=== PATIENT | female | born 1980 | race Caucasian/White ===

== ENCOUNTER 2016-08-22 21:48 | Emergency (ER) | payer MEDICAID ==
[~2016-08-22] VITALS: Ht 167.6 cm; Wt 97.0 kg
[~2016-08-22 21:48] MED LIST: ACET500C5 PO; IBUP-1542 PO; PREN1TAB49
[2016-08-22 21:57] VITALS: Ht 167.6 cm; Wt 97.0 kg
--- NOTE | 2016-08-22 22:18 | ERD ---
ER Documentation Chief Complaint Date/Time DATE: 08/22/16 Chief Complaint Right great toe injury HPI The patient is a 36-year-old female who presents to the Emergency Department with complaint of crush injury to the right great toe, with laceration noted. The patient reports that at home she has a TV sitting on a coffee table. She was attempting to move the coffee table, when the TV fell off, and landed directly onto the patient's right great toe, causing a crush injury and a laceration to the medial aspect of the toe. She states that shortly after the injury she was experiencing some bleeding, but the bleeding has since resolved. The patient reports as 6/10 throbbing pain localized to the distal right toe. Otherwise, denies any numbness, paresthesias or weakness of the distal extremity. Denies any restricted range of motion. Denies any protruding bone. She has not yet taken any medication for pain relief. Tetanus status is not up- to-date. No other complaints at this time. ROS All systems reviewed and are negative except as per history of present illness. Medications Home Meds Active Scripts Ibuprofen* (Motrin*) 600 Mg Tab, 600 MG PO Q6, #30 TAB Prov:BELA MARTINEZ PA-C 08/23/16 Acetaminophen* (Tylophen*) 500 Mg Capsule, 1 CAP PO Q6H Y for PAIN AND OR ELEVATED TEMP, #30 CAP Prov:DAREN FONTENOT PA-C 10/23/15 Ibuprofen* (Motrin*) 600 Mg Tab, 600 MG PO Q6, #30 TAB Prov:DAREN FONTENOT PA-C 10/23/15 Reported Medications Vits W-Ca,Fe,Fa(<1MG) () 1 Tab Tablet 07/25/10 Allergies Allergies: Coded Allergies: No Known Allergies (Verified Allergy, Mild, 10/23/15) PMhx/Soc Medical and Surgical Hx: pt denies Medical Hx, pt denies Surgical Hx Hx Alcohol Use: No Hx Substance Use: No Hx Tobacco Use: No Smoking Status: Never smoker Physical Exam Vitals Vital Signs Date Time Temp Pulse Resp B/P Pulse Ox O2 Delivery O2 Flow Rate FiO2 08/22/16 21:57 97.8 88 20 138/71 98 Physical Exam Const: Well-developed, well-nourished, in no acute distress. Head: Atraumatic. Normocephalic. Eyes: Normal Conjunctiva ENT: Normal External Ears, Nose and Mouth. Neck: Supple. Full range of motion. Resp: Clear to auscultation bilaterally Cardio: Regular rate and rhythm Abd: Soft, non tender, non distended. Skin: 1.5 cm linear laceration to the distal right great toe, medial aspect. No active bleeding. No drainage. No protruding bone. No foreign bodies noted. Back: No midline or flank tenderness Ext: No clubbing, cyanosis, or edema. Mild tenderness to palpation to the distal aspect of the right great toe. No focal swelling or erythema. No drainage. No bleeding. Laceration noted. Motor and sensation grossly intact. DP and PT pulses 2+. Capillary refill is less than 2 seconds. No subungual hematoma noted. Neur: Awake and alert Psych: Cooperative. Appropriate. Results 24 hrs Current Medications Medications (Trade) Dose Ordered Sig/Mely Route PRN Reason Start Time Stop Time Status Last Admin Dose Admin Bacitracin (Bacitracin Oint (Ud)) 1 applic ONCE ONCE TOP 08/22/16 22:30 08/22/16 22:31 DC 08/22/16 22:55 Lidocaine (Xylocaine 1% (Mdv) 20 ml) 20 ml ONCE ONCE SC 08/22/16 22:30 08/22/16 22:31 DC Diphtheria/ Tetanus/Acell Pertussis (Adacel) 0.5 ml ONCE ONCE IM* 08/22/16 22:30 08/22/16 22:31 DC 08/22/16 22:55 Ibuprofen (Motrin) 600 mg ONCE ONCE PO 08/22/16 22:30 08/22/16 22:31 DC 08/22/16 22:52 Procedures/MDM DIAGNOSTIC TESTS AND INTERPRETATION: PROCEDURE: XR Right Foot. CLINICAL INDICATION: Trauma. Pain.. TECHNIQUE: AP, lateral and oblique views of the right foot was obtained. The images were reviewed on a PACS workstation. COMPARISON: 10/23/2015 FINDINGS:There are no fractures. Joint relationships are maintained. Bone mineralization is within normal limits. There is small plantar calcaneal bone spur. Soft tissues are unremarkable. IMPRESSION:No acute abnormality. Small plantar calcaneal bone spur. .Chema Muñoz MD, MD Date Time Electronically viewed and signed by .Chema Muñoz MD, MD on 08/22/2016 23:59 PROCEDURAL NOTE: Laceration repair. INDICATIONS: 1.5 cm linear laceration to medial aspect of the distal right great toe. CONSENT: Consent was obtained from the patient prior to the procedure. Indications, risks and benefits were explained at length. PROCEDURAL SUMMARY: The patient was positioned appropriately. The site was anesthetized with 1 mL of 1% lidocaine without epinephrine. Normal saline and Betadine were used for wound irrigation. The wound was then explored, and no foreign body visualized, no tendon injury. The area was prepared and draped in the usual sterile manner with the wound exposed. Three 5-0 simple interrupted Prolene sutures are placed with good wound closure and good wound approximation. Bleeding was minimal. The patient tolerated the procedure well without complications. The wound was dressed with bacitracin and sterile gauze. Standard post procedure care was explained and return precautions were given. On re-evaluation, the patient was resting comfortable with no pain localized to the site of injury. She was neurovascularly and neurologically intact post-procedure. MEDICAL DECISION MAKING: This is a 36-year-old female presenting to the ED with right great toe pain and laceration after a TV fell onto it. On physical examination the patient had tenderness to palpation over the distal right great toe, with a 1.5 cm linear laceration noted. Vital signs were stable. She remained neurovascularly intact with no decrease in ROM. Differential diagnosis includes, but is not limited to, soft tissue injury, contusion, sprain , strain, dislocation, fracture, neurovascular injury, tendon injury, vascular injury, peripheral nerve injury. X-ray performed revealed no acute bony abnormalities. The patient's laceration was sutured. The patient had good wound closure and wound approximation, and tolerated the procedure well. The patient was neurovascularly intact prior to and status post laceration repair. Standard post-procedure care was explained to the patient at length. On reevaluation the patient reports no new complaints. Upon my review and interpretation of the patient's presentation, clinical data, and overall ER course I believe the patient's symptoms are most consistent with crush injury and laceration to the right great toe. At this time the patient is in stable condition and therefore can be discharged home with strict return precautions for signs of acute deterioration of condition. The patient is advised to follow up with her primary medical provider for wound check, reevaluation and further management within 2-3 days, suture removal in 7-10 days , or return to the ER sooner for any new or worsening symptoms. I shared my medical decision making, plan and the diagnostic results with the patient and patient at length and in great detail, and she verbally understands and agrees with the plan for further observation and care as an outpatient. At the time of discharge all questions were answered. Departure Diagnosis: Primary Impression: Laceration of right great toe Encounter type: initial encounter Damage to nail status: without damage Foreign body presence: without foreign body Qualified Code: S91.111A - Laceration of right great toe without foreign body present or damage to nail, initial encounter Additional Impression: Crushing injury of right great toe Encounter type: initial encounter Qualified Code: S97.111A - Crushing injury of right great toe, initial encounter Condition: Stable Patient Instructions: Crush Injury, Foot/Toe, Laceration, Foot Additional Instructions: Llame al doctor MAANA y nidhi flakita VERONIKA PARA DENTRO DE 1-2 HEBERT.Dgale a la secretaria que nosotros le instruimos hacer esta veronika.Avise o llame si swift condicin se empeora antes de la veronika. Regresa aqui si peor o no mejor. WOUND CHECK:CONSULTE A SWIFT MDICO EN 2 ramos para ana SWIFT HERIDA. SUTURE REMOVAL: CONSULTE A SWIFT MDICO PARA SACAR SWIFT PUNTOS. 7-10 ramos. BELA MARTINEZ PA-C Aug 22, 2016 22:18
[2016-08-22] MEDS ORDERED: IBUPROFEN 600 MG TAB PO ONE (22:30)
[2016-08-22] MEDS ORDERED: LIDOCAINE 1% (MDV) 20 ML INJ SC ONE (22:30)
[2016-08-22] MEDS ORDERED: BACITRACIN 0.9 GM OINT TOP ONE (22:30)
[2016-08-22] MEDS ORDERED: DIPHTH/TET/ACEL PERTUSS (ADULT) 0.5 ML VIAL IM* ONE (22:30)
--- NOTE | 2016-08-22 23:59 | RADRPT ---
PROCEDURE: XR Right Foot. CLINICAL INDICATION: Trauma. Pain.. TECHNIQUE: AP, lateral and oblique views of the right foot was obtained. The images were reviewed on a PACS workstation. COMPARISON: 10/23/2015 FINDINGS: There are no fractures. Joint relationships are maintained. Bone mineralization is within normal l imits. There is small plantar calcaneal bone spur. Soft tissues are unremarkable. IMPRESSION: No acute abnormality. Small plantar calcaneal bone spur. RPTAT: HMVK .Chema Muñoz MD, Date Time Electronically viewed and signed by .Chema Muñoz MD, on 08/22/2016 23:59 .K/
[2016-08-23] MEDS ORDERED: IBUP-1542 PO (00:08)
== END 2016-08-23 00:23 | disposition home or self-care (01) ==
LOC: FTE 21:48
DX: S91.111A Laceration without foreign body of right great toe without damage to nail, initial encounter (principal); S97.111A Crushing injury of right great toe, initial encounter; W20.8XXA Other cause of strike by thrown, projected or falling object, initial encounter; Y92.009 Unspecified place in unspecified non-institutional (private) residence as the place of occurrence of the external cause; Z23 Encounter for immunization
CPT/HCPCS: 12001; 73630; 90471; 90715; Z7502; Z7610

== ENCOUNTER 2017-02-25 19:00 | Inpatient (IN) | END 2017-02-26 18:10 | disposition home or self-care (01) | DRG 742 ==

== ENCOUNTER 2017-11-02 19:09 | Emergency (ER) | END 2017-11-02 23:58 | disposition home or self-care (01) ==

== ENCOUNTER 2017-12-08 15:56 | Emergency (ER) | END 2017-12-08 19:06 | disposition home or self-care (01) ==

== ENCOUNTER 2018-07-31 08:58 | Emergency (ER) | payer BC ==
[~2018-07-31] VITALS: Wt 90.0 kg
[~2018-07-31 08:58] MED LIST changes: -ACET500C5 PO; +BEN25 PO; +HC30CR25 TOP; +NITR-58 PO; -PREN1TAB49
[2018-07-31] MEDS ORDERED: SOD CHLORIDE 0.9% 1,000 ML IV STA (09:16)
[2018-07-31] MEDS ORDERED: ONDANSETRON 4 MG INJ IV STA (09:16)
[2018-07-31] MEDS ORDERED: KETOROLAC 30 MG INJ IV STA (09:16)
[2018-07-31] MEDS ORDERED: IBUP-1542 PO (11:08)
[2018-07-31] MEDS ORDERED: NITR-58 PO (11:08)
[2018-07-31] MEDS ORDERED: ONDA4TAB14 PO (11:08)
[2018-07-31 11:21] VITALS: BP 149/78; PULSE 71; RESP 18
--- NOTE | 2018-08-15 18:26 | ERD ---
ER Documentation Chief Complaint Chief Complaint right side ap for 2 days with n/v. intermittent diarrhea. HPI Patient is a 38-year-old female, presents to the ER for concerns of right-sided abdominal pain, with nausea and vomiting x3 days. Patient also reports intermittent diarrhea. Patient denies any blood or mucus in her stools. Patient denies any fevers or chills. Patient denies any flank pain. Patient does admit to occasional dysuria. No recent travel. No sick contacts. Patient denies any vaginal bleeding or rectal bleeding. Patient denies chest pain or shortness of breath. ROS All systems reviewed and are negative except as per history of present illness. Medications Home Meds Active Scripts Ibuprofen* (Motrin*) 600 Mg Tab, 600 MG PO Q6, #30 TAB Prov:MARLEEN RASHID PA-C 07/31/18 Ondansetron (Ondansetron Odt) 4 Mg Tab.rapdis, 4 MG PO Q6H PRN for NAUSEA AND/OR VOMITING, #10 TAB Prov:MARLEEN RASHID PA-C 07/31/18 Nitrofurantoin Monohyd Macrocr* (Macrobid*) 100 Mg Capsr, 100 MG PO BID for 5 Days, CAP Prov:MARLEEN RASHID PA-C 07/31/18 Hydrocortisone* Topical (Hydrocortisone* Topical) 2.5%-28.3 Gm Cream..g., 1 APPLIC TOP BID, #1 TUB Prov:NIC QUINONES PA-C 12/08/17 Diphenhydramine Hcl* (Benadryl*) 25 Mg Cap, 25 MG PO Q6 PRN for ITCHING/RASH, #30 TAB Prov:NIC QUINONES PA-C 12/08/17 Nitrofurantoin Monohyd Macrocr* (Macrobid*) 100 Mg Capsr, 100 MG PO BID for 5 Days, CAP Prov:MARLEEN RASHID PA-C 11/02/17 Ibuprofen* (Motrin*) 600 Mg Tab, 600 MG PO Q6, #30 TAB Prov:MARLEEN RASHID PA-C 11/02/17 Allergies Allergies: Coded Allergies: No Known Allergies (Unverified Allergy, Mild, 02/25/17) PMhx/Soc Medical and Surgical Hx: pt denies Medical Hx History of Surgery: Yes (c/s x 2) Anesthesia Reaction: No Hx Alcohol Use: No Hx Substance Use: No Hx Tobacco Use: No FmHx Family History: No diabetes, No coronary disease, No other Physical Exam Physical Exam GENERAL: Well-developed, well-nourished female. Appears in no acute distress. HEAD: Normocephalic, atraumatic. EYES: Pupils are equally reactive bilaterally. EOMs grossly intact. No conjunctival erythema. NECK: Supple. No meningismus. Normal range of motion of the neck. LUNG: Clear to auscultation bilaterally. No rhonchi, wheezing, rales or coarse breath sounds. HEART: Regular rate and rhythm. No murmurs, rubs or gallops. ABDOMEN: Soft nondistended. Tender to palpation of the right upper quadrant and right lower quadrant. Positive bowel sounds in all four quadrants. No rebound tenderness, no guarding. (-) McBurney's point tenderness. No CVA tenderness. BACK: No midline tenderness. EXTREMITIES: Equal pulses bilaterally. No peripheral clubbing, cyanosis or edema. No unilateral leg swelling. NEUROLOGIC: Alert and oriented. Moving all four extremities without any difficulty. Normal speech. Steady gait. SKIN: Normal color. Warm and dry. No rashes or lesions. Results 24 hrs Laboratory Tests Test 07/31/18 09:00 07/31/18 09:27 07/31/18 09:32 Urine Color YELLOW Urine Clarity SLIGHTLY CLOUDY Urine pH 5.0 Urine Specific [place] 1.023 Urine Ketones NEGATIVE mg/dL Urine Nitrite NEGATIVE mg/dL Urine Bilirubin NEGATIVE mg/dL Urine Urobilinogen NEGATIVE mg/dL Urine Leukocyte Esterase 2+ Yenifer/ul Urine Microscopic RBC 4 /HPF Urine Microscopic WBC 2 /HPF Urine Squamous Epithelial Cells MODERATE /HPF Urine Transitional FEW /HPF Epithelial Cells Urine Bacteria FEW /HPF Urine Mucus FEW /HPF Urine Hemoglobin 2+ mg/dL Urine Glucose NEGATIVE mg/dL Urine Total Protein NEGATIVE mg/dl POC Beta HCG, Qualitative NEGATIVE White Blood Count 9.4 10^3/ul Red Blood Count 5.09 10^6/ul Hemoglobin 14.6 g/dl Hematocrit 43.2 % Mean Corpuscular Volume 84.9 fl Mean Corpuscular Hemoglobin 28.7 pg Mean Corpuscular 33.8 g/dl Hemoglobin Concent Red Cell Distribution Width 13.0 % Platelet Count 270 10^3/UL Mean Platelet Volume 11.1 fl Immature Granulocytes % 0.700 % Neutrophils % 67.5 % Lymphocytes % 25.2 % Monocytes % 5.0 % Eosinophils % 1.1 % Basophils % 0.5 % Nucleated Red Blood Cells % 0.0 /100WBC Immature Granulocytes # 0.070 10^3/ul Neutrophils # 6.4 10^3/ul Lymphocytes # 2.4 10^3/ul Monocytes # 0.5 10^3/ul Eosinophils # 0.1 10^3/ul Basophils # 0.1 10^3/ul Nucleated Red Blood Cells # 0.0 10^3/ul Sodium Level 140 mmol/L Potassium Level 4.2 mmol/L Chloride Level 105 mmol/L Carbon Dioxide Level 27 mmol/L Anion Gap 8 Blood Urea Nitrogen 13 mg/dl Creatinine 0.56 mg/dl Est Glomerular Filtrat > 60 mL/min Rate mL/min Glucose Level 154 mg/dl Calcium Level 9.3 mg/dl Total Bilirubin 0.6 mg/dl Direct Bilirubin 0.00 mg/dl Indirect Bilirubin 0.6 mg/dl Aspartate Amino Transf (AST/SGOT) 51 IU/L Alanine 77 IU/L Aminotransferase (ALT/SGPT) Alkaline Phosphatase 99 IU/L Total Protein 7.7 g/dl Albumin 4.2 g/dl Globulin 3.50 g/dl Albumin/Globulin Ratio 1.20 Lipase 38 U/L Current Medications Medications Dose Sig/Mely Start Time Status Last (Trade) Ordered Route PRN Stop Time Admin Dose Reason Admin Sodium 1,000 ml @ Q1H STAT 07/31/18 DC 07/31/18 Chloride 1,000 mls/hr IV 09:16 07/31/18 09:29 10:15 Ondansetron 4 mg ONCE STAT 07/31/18 DC 07/31/18 HCl (Zofran IV 09:16 07/31/18 09:29 Inj) 09:18 Ketorolac 30 mg ONCE STAT 07/31/18 DC 07/31/18 Tromethamine IV 09:16 07/31/18 09:29 (Toradol) 09:18 Procedures/MDM ED COURSE: The patient was stable throughout ED course. I kept the patient and/or family informed of laboratory and diagnostic imaging results throughout the ED course. DIAGNOSTIC IMAGING: Read by radiologist. Patient: ADDI BARRAGAN : 1980 Age: 38 Sex: F MR #: [id number] DOS: 07/31/18 0916 Ordering MD: MARLEEN RASHID PA-C Location: [facility] Room/Bed: PROCEDURE: Right upper quadrant abdominal ultrasound. CLINICAL INDICATION: Abdominal pain TECHNIQUE: Banks scale and color doppler ultrasound images of the right upper quadrant of the abdomen. COMPARISON: CT 02/25/2017 FINDINGS: Pancreas: Visualized portions appear of normal echogenicity without focal lesions. Liver: Morphology:Normal in size. Contour:Normal, no evidence of nodularity. Echogenicity: Increased Focal lesions:None. Main portal vein: Patent with hepatopetal flow. Biliary System: Gallbladder wall: Normal thickness. Gallstones: None. Intrahepatic bile ducts: Normal caliber. Common bile duct diameter (mm): 2.3 Kidneys: Right length (cm) : 9.6 Right cortical thickness: Normal. Echogenicity: Normal. Hydronephrosis: None. Renal calculi: None. Focal lesions: None. Free fluid/ascites: None. Other findings: None. IMPRESSION: Normal gallbladder without gallstones. Increased echogenicity of the liver parenchyma suggestive of hepatic steatosis. RPTAT: AADD .Nic Palmer MD, MD Date Time Electronically viewed and signed by .Nic Palmer MD, on 07/31/2018 10:19 .B/ CC: MARLEEN RASHID PA-C [id number] Patient: ADDI BARRAGAN : 1980 Age: 38 Sex: F MR #: [id number] DOS: 07/31/1816 Ordering MD: MARLEEN RASHID PA-C Location: [facility] Room/Bed: PROCEDURE: US Pelvis. CLINICAL INDICATION: pelvic pain TECHNIQUE: Multiple sonographic images of the pelvis were obtained utilizing transabdominal and endovaginal technique. The images were reviewed on a PACS workstation. COMPARISON: 11/02/2017 FINDINGS: The uterus is normal in size with a normal appearance of the myometrium. The uterus measures 8.9 x 4.9x 6.1 cm. The endometrial stripe is homogeneous in appearance and has the thickness of 10 mm. The ovaries are normal in size and echogenicity. Normal Doppler flow is identified in both ovaries. The right ovary measures 3.6 x 1.9 x 2.8 cm. There is a 1.9 cm hemorrhagic cyst in the right ovary. The left ovary measures 2.5 x 1.6 x 1.6 cm. No free fluid is present within the pelvis. RPTAT: AA IMPRESSION: Small hemorrhagic cyst in the right ovary. .Noah Pendleton MD, MD Date Time Electronically viewed and signed by .Noah Pendleton MD, on 07/31/2018 10:57 .S/ CC: MARLEEN RASHID PA-C [phone] PROCEDURES: None. MEDICATIONS GIVEN: IV fluids, Zofran, Toradol Patient tolerated medication well with no adverse reactions. Patient reported improvement in pain. MEDICAL DECISION MAKING: This is a 38-year-old female, presents here for concerns of right upper quadrant pain, nausea, vomiting and diarrhea x3 days.. Vital signs were reviewed. Patient is afebrile. IV line was established. Blood work was obtained.. Mild elevation of AST and ALT noted. CBC showed no evidence of systemic infection or severe anemia. CMP showed no evidence of electrolyte abnormalities, severe acidosis, alkalosis, renal failure Lipase showed no evidence of acute pancreatitis. UA did show 2+ leukocyte esterase. Given the patient is reporting dysuria, patient will be treated with course of antibiotics at this time. Urine test was negative. Gallbladder ultrasound showed no evidence of gallstones or cholecystitis. Hepatic steatosis was noted. Pelvic ultrasound showed concerns of a hemorrhagic cyst. Normal ovarian blood flow is noted bilaterally. On reexamination, patient reported improvement pain. Patient had no additional episodes of nausea or vomiting at the ED course. Patient was advised to follow-up with [facility]PER[facility] for further management of her ovarian cyst pain. At this time, patient's presentation is most consistent with hemorrhagic ovarian cyst and UTI. Differential diagnosis included was not limited to acute coronary syndrome, AAA, mesenteric ischemia, lower lobe pneumonia, DKA, bowel perforation, cholecystitis, choledocholithiasis, ascending cholangitis, hepatic abscess, pancreatitis, PUD, gastritis, GERD, splenic rupture, diverticulitis, UTI, pyelonephritis, nephrolithiasis, appendicitis, constipation, , ectopic , PID, ovarian torsion or tubo-ovarian abscess. Patient was nontoxic, [id number] prior to discharge. PRESCRIPTIONS: Macrobid, ibuprofen, Zofran DISCHARGE: At this time, patient is stable for discharge and outpatient management. I have instructed the patient to follow-up with his/her primary care physician in 1-2 days. I have instructed the patient to promptly return to the ER at any time for any new or worsening symptoms including increased pain, nausea, vomiting, diarrhea, fever, weakness or LOC. The patient and/or family expressed understanding of and agreement with this plan. All questions were answered. Home care instructions were provided Disclaimer: Inadvertent spelling and grammatical errors are likely due to EHR/dictation software use and do not reflect on the overall quality of patient care. Also, please note that the electronic time recorded on this note does not necessarily reflect the actual time of the patient encounter.. Departure Diagnosis: Primary Impression: UTI (urinary tract infection) Urinary tract infection type: site unspecified Hematuria presence: without hematuria Qualified Codes: N39.0 - Urinary tract infection, site not specified Additional Impression: Hemorrhagic ovarian cyst Condition: Fair Patient Instructions: What Are Ovarian Cysts?, Understanding Urinary Tract Infections (UTIs) Referrals: [facility] YOU HAVE RECEIVED A MEDICAL SCREENING EXAM AND THE RESULTS INDICATE THAT YOU DO NOT HAVE A CONDITION THAT REQUIRES URGENT TREATMENT IN THE EMERGENCY DEPARTMENT. FURTHER EVALUATION AND TREATMENT OF YOUR CONDITION CAN WAIT UNTIL YOU ARE SEEN IN YOUR DOCTORS OFFICE WITHIN THE NEXT 1-2 DAYS. IT IS YOUR RESPONSIBILITY TO MAKE AN APPOINTMENT FOR FOLOW-UP CARE. IF YOU HAVE A PRIMARY DOCTOR --you should call your primary doctor and schedule an appointment IF YOU DO NOT HAVE A PRIMARY DOCTOR YOU CAN CALL OUR PHYSICIAN REFERRAL HOTLINE AT IF YOU CAN NOT AFFORD TO SEE A PHYSICIAN YOU CAN CHOSE FROM THE FOLLOWING [facility] [address] [facility]. [facility] [address] [facility] [facility] [address] [facility] [address] [facility] [address] [facility]. [facility] [address] [facility]. [facility] YOU HAVE RECEIVED A MEDICAL SCREENING EXAM AND THE RESULTS INDICATE THAT YOU DO NOT HAVE A CONDITION THAT REQUIRES URGENT TREATMENT IN THE EMERGENCY DEPARTMENT. FURTHER EVALUATION AND TREATMENT OF YOUR CONDITION CAN WAIT UNTIL YOU ARE SEEN IN YOUR DOCTORS OFFICE WITHIN THE NEXT 1-2 DAYS. IT IS YOUR RESPONSIBILITY TO MAKE AN APPOINTMENT FOR FOLOW-UP CARE. IF YOU HAVE A PRIMARY DOCTOR --you should call your primary doctor and schedule and appointment IF YOU DO NOT HAVE A PRIMARY DOCTOR YOU CAN CALL OUR PHYSICIAN REFERRAL HOTLINE AT . IF YOU CAN NOT AFFORD TO SEE A PHYSICIAN YOU CAN CHOSE FROM THE FOLLOWING [facility] INSTITUTIONS: [facility] [address] [place] [address] [facility] [address] [place] [address] [facility] [address] [place] [address] [facility] [address] [facility] [address] [place], [place] [phone] OFFICE FAX FRANC CARO [address] [place], [place] [phone] [address] [place] [address] [place], [place] [phone] [place]CKERT [address] [facility], [address] [address] [address] R[address] [address] [facility] [place], [place] [phone] [facility] [address] [place], [place] [address] [address] [facility] [id number] - DR TATUM, PAYAL [address], [facility] [phone] VERAS, KATLIN [address] [facility]. [address], [facility] [address] [address] [place], [place] [address] [place], [place] [phone] Additional Instructions: Llame al doctor/ OBGYN MAANA y nidhi flakita VERONIKA PARA DENTRO DE 1-2 HEBERT.Dgale a la secretaria que nosotros le instruimos hacer esta veronika.Avise o llame si lockhart condicin se empeora antes de la veronika. Regresa aqui si peor o no mejor. MARLEEN RASHID PA-C Aug 15, 2018 18:26
== END 2018-07-31 11:22 | disposition home or self-care (01) ==
LOC: FTE 08:58
DX: N39.0 Urinary tract infection, site not specified (principal); N83.201 Unspecified ovarian cyst, right side; R10.2 Pelvic and perineal pain
CPT/HCPCS: 76705; 76830; 76856; 80053; 81001; 81025; 83690; 85025; J1885; J2405; J7030; 36415; 96361; 96374; 96375

== ENCOUNTER 2018-10-03 11:44 | Emergency (ER) | payer BC ==
[~2018-10-03] VITALS: Ht 157.5 cm; Wt 90.0 kg
[~2018-10-03 11:44] MED LIST changes: +FAMO-96 PO; +HYDR-4011 PO; +ONDA4TAB14 PO
[2018-10-03 11:45] VITALS: BP 150/89; PULSE 90; RESP 18; Ht 157.5 cm; Wt 90.0 kg
[2018-10-03] MEDS ORDERED: morphine 4 MG/ML VIAL IV STA (12:03)
[2018-10-03] MEDS ORDERED: SOD CHLORIDE 0.9% 1,000 ML IV STA (12:03)
[2018-10-03] MEDS ORDERED: ONDANSETRON 4 MG INJ IV STA (12:03)
--- NOTE | 2018-10-03 15:30 | ERD ---
ER Documentation Chief Complaint Chief Complaint AP , HX GALLSTONES, SCHEDULE FOR SURGERY IN 2 WEEKS HPI 38-year-old female presenting with epigastric pain. In 2 weeks patient is scheduled for cholecystectomy however she had a severe pain start this morning. Denies any fevers. Had a few episodes of vomiting earlier. Took ibuprofen with no alleviation. Denies any chest pain or shortness of breath. Denies medical problems. NKDA. Surgical history and ovarian cyst removal. Social history denies ROS All systems reviewed and are negative except as per history of present illness. Medications Home Meds Active Scripts Famotidine* (Pepcid*) 20 Mg Tablet, 20 MG PO BID for 4 Days, #30 TAB Prov:SILVIA FARAH PA-C 10/03/18 Hydrocodone/Acetaminophen ([place] 5-325 Tablet) 1 Each Tablet, 1 TAB PO Q6H PRN for PAIN, #7 TAB Prov:SILVIA FARAH PA-C 10/03/18 Ibuprofen* (Motrin*) 600 Mg Tab, 600 MG PO Q6, #30 TAB Prov:MARLEEN RASHID PA-C 07/31/18 Ondansetron (Ondansetron Odt) 4 Mg Tab.rapdis, 4 MG PO Q6H PRN for NAUSEA AND/OR VOMITING, #10 TAB Prov:MARLEEN RASHID PA-C 07/31/18 Nitrofurantoin Monohyd Macrocr* (Macrobid*) 100 Mg Capsr, 100 MG PO BID for 5 Days, CAP Prov:MARLEEN RASHID PA-C 07/31/18 Hydrocortisone* Topical (Hydrocortisone* Topical) 2.5%-28.3 Gm Cream..g., 1 APPLIC TOP BID, #1 TUB Prov:CORINE QUINONES PA-C 12/08/17 Diphenhydramine Hcl* (Benadryl*) 25 Mg Cap, 25 MG PO Q6 PRN for ITCHING/RASH, #30 TAB Prov:CORINE QUINONES PA-C 12/08/17 Nitrofurantoin Monohyd Macrocr* (Macrobid*) 100 Mg Capsr, 100 MG PO BID for 5 Days, CAP Prov:MARLEEN RASHID PA-C 11/02/17 Ibuprofen* (Motrin*) 600 Mg Tab, 600 MG PO Q6, #30 TAB Prov:MARLEEN RASHID PA-C 11/02/17 Allergies Allergies: Coded Allergies: No Known Allergies (Unverified Allergy, Mild, 02/25/17) PMhx/Soc Medical and Surgical Hx: pt denies Medical Hx History of Surgery: Yes (c/s x 2) Anesthesia Reaction: No Hx Alcohol Use: No Hx Substance Use: No Hx Tobacco Use: No Smoking Status: Never smoker FmHx Family History: No diabetes, No coronary disease, No other Physical Exam Vitals Vital Signs Date Temp Pulse Resp B/P (MAP) Pulse Ox O2 O2 Flow FiO2 Time Delivery Rate 10/03/18 98.1 90 18 150/89 99 11:45 (109) Physical Exam GENERAL: The patient is well-appearing, well-nourished, in no acute distress HEENT: Atraumatic. Conjunctivae are pink. Pupils equal, round, and reactive to light. There is no scleral icterus. Tympanic membranes clear bilaterally. Oropharynx clear. CHEST: Clear to auscultation bilaterally. There are no rales, wheezes or rhonchi. HEART: Regular rate and rhythm. No murmurs, clicks, rubs or gallops. ABDOMEN: Active bowel sounds. No distention. No organomegaly. Tender palpation the epigastric region. No rebound tenderness. Result Diagram: 10/03/18 1213 10/03/18 1213 Results 24 hrs Laboratory Tests Test 10/03/18 12:13 10/03/18 12:18 White Blood Count 8.5 10^3/ul Red Blood Count 4.97 10^6/ul Hemoglobin 14.5 g/dl Hematocrit 42.5 % Mean Corpuscular Volume 85.5 fl Mean Corpuscular Hemoglobin 29.2 pg Mean Corpuscular Hemoglobin Concent 34.1 g/dl Red Cell Distribution Width 12.6 % Platelet Count 233 10^3/UL Mean Platelet Volume 11.5 fl Immature Granulocytes % 0.400 % Neutrophils % 64.9 % Lymphocytes % 27.8 % Monocytes % 5.4 % Eosinophils % 1.1 % Basophils % 0.4 % Nucleated Red Blood Cells % 0.0 /100WBC Immature Granulocytes # 0.030 10^3/ul Neutrophils # 5.6 10^3/ul Lymphocytes # 2.4 10^3/ul Monocytes # 0.5 10^3/ul Eosinophils # 0.1 10^3/ul Basophils # 0.0 10^3/ul Nucleated Red Blood Cells # 0.0 10^3/ul Urine Color YELLOW Urine Clarity SLIGHTLY CLOUDY Urine pH 5.0 Urine Specific [place] 1.015 Urine Ketones NEGATIVE mg/dL Urine Nitrite NEGATIVE mg/dL Urine Bilirubin NEGATIVE mg/dL Urine Urobilinogen NEGATIVE mg/dL Urine Leukocyte Esterase TRACE Yenifer/ul Urine Microscopic RBC 3 /HPF Urine Microscopic WBC 7 /HPF Urine Squamous Epithelial Cells FEW /HPF Urine Mucus FEW /HPF Urine Hemoglobin 3+ mg/dL Urine Glucose 2+ mg/dL Urine Total Protein NEGATIVE mg/dl Sodium Level 138 mmol/L Potassium Level 3.9 mmol/L Chloride Level 104 mmol/L Carbon Dioxide Level 27 mmol/L Anion Gap 7 Blood Urea Nitrogen 12 mg/dl Creatinine 0.59 mg/dl Est Glomerular Filtrat Rate mL/min > 60 mL/min Glucose Level 253 mg/dl Calcium Level 9.0 mg/dl Total Bilirubin 0.4 mg/dl Direct Bilirubin 0.00 mg/dl Indirect Bilirubin 0.4 mg/dl Aspartate Amino Transf (AST/SGOT) 68 IU/L Alanine Aminotransferase (ALT/SGPT) 121 IU/L Alkaline Phosphatase 98 IU/L Total Protein 6.7 g/dl Albumin 3.9 g/dl Globulin 2.80 g/dl Albumin/Globulin Ratio 1.39 Lipase 69 U/L POC Beta HCG, Qualitative NEGATIVE Current Medications Medications Dose Sig/Mely Start Time Status Last (Trade) Ordered Route PRN Stop Time Admin Dose Reason Admin Sodium 1,000 ml @ Q1H STAT 10/03/18 DC 10/03/18 Chloride 1,000 mls/hr IV 12:03 12:18 10/03/18 13:02 Morphine 4 mg ONCE STAT 10/03/18 DC 10/03/18 Sulfate IV 12:03 12:18 (morphine) 10/03/18 12:04 Ondansetron 4 mg ONCE STAT 10/03/18 DC 10/03/18 HCl (Zofran IV 12:03 12:17 Inj) 10/03/18 12:04 Procedures/MDM DIAGNOSTIC IMAGING REPORT Patient: ADDI BARRAGAN : 1980 Age: 38 Sex: F MR #: [id number] DOS: 10/03/18 1203 Ordering MD: RADHA FARAH PA-C Location: [facility] Room/Bed: PROCEDURE: US Abdomen. CLINICAL INDICATION: abdominal pain TECHNIQUE: Multiple real-time images were acquired of the patient's right upper quadrant abdomen and retroperitoneum utilizing a high resolution transducer. COMPARISON: 07/31/2018 FINDINGS: The liver demonstrates increased echogenicity. The liver is enlarged in size and no focal solid lesions are seen. The liver measures 20.5 cm in length. The portal vein is patent with normal direction of flow. No intrahepatic biliary dilatation is seen. No gallstones are identified within the gallbladder. There is no pericholecystic fluid or gallbladder wall thickening. The common bile duct measures 4 mm in maximal dimension. The pancreas is not well seen due to overlying bowel gas. No free fluid is identified. The right kidney is normal in size, and demonstrate normal echogenicity and cortical thickness. The right kidney measures 12.2 cm in long dimension. There is no evidence of hydronephrosis. There are no kidney stones. RPTAT: AA IMPRESSION: Mild hepatomegaly with diffuse fatty liver. No evidence of gallstones. MDM: 38-year-old female presenting with epigastric pain. I have low suspicion for choledocholithiasis, cholecystitis, cholangitis or pancreatitis. No gallstones are noted on ultrasound and blood work is within normal limits. Patient is discharged with supportive medications. Patient's pain is well controlled in the ER. Patient is told if symptoms change or worsen to return immediately to the ER. All questions answered at discharge Departure Diagnosis: Primary Impression: Epigastric pain Condition: Stable Patient Instructions: Epigastric Pain (Uncertain Cause) Referrals: [facility] YOU HAVE RECEIVED A MEDICAL SCREENING EXAM AND THE RESULTS INDICATE THAT YOU DO NOT HAVE A CONDITION THAT REQUIRES URGENT TREATMENT IN THE EMERGENCY DEPARTMENT. FURTHER EVALUATION AND TREATMENT OF YOUR CONDITION CAN WAIT UNTIL YOU ARE SEEN IN YOUR DOCTORS OFFICE WITHIN THE NEXT 1-2 DAYS. IT IS YOUR RESPONSIBILITY TO MAKE AN APPOINTMENT FOR FOLOW-UP CARE. IF YOU HAVE A PRIMARY DOCTOR --you should call your primary doctor and schedule an appointment IF YOU DO NOT HAVE A PRIMARY DOCTOR YOU CAN CALL OUR PHYSICIAN REFERRAL HOTLINE AT IF YOU CAN NOT AFFORD TO SEE A PHYSICIAN YOU CAN CHOSE FROM THE FOLLOWING [facility] [id number] [facility] [place] [address] [facility] [address] [facility] [address] [facility] [address] [facility]. [facility] [address] Additional Instructions: FOLLOW UP WITH YOUR PRIMARY CARE PHYSICIAN TOMORROW.Return to this facility if you are not improving as expected. SILVIA FARAH PA-C Oct 03, 2018 15:30
== END 2018-10-03 13:05 | disposition home or self-care (01) ==
LOC: FTE 11:44
DX: R10.13 Epigastric pain (principal)
CPT/HCPCS: 36415; 76705; 80053; 81001; 81025; 83690; 85025; 96361; 96374; 96375; 99285; J2270; J2405; J7030

== ENCOUNTER 2018-10-12 12:50 | Day surgery (SDC) | payer BC ==
[~2018-10-12] VITALS: Ht 149.9 cm; Wt 98.0 kg
[2018-10-12 14:03] VITALS: Ht 149.9 cm; Wt 98.0 kg
[2018-10-12 16:18] VITALS: BP 139/83; PULSE 85; RESP 16
== END 2018-10-12 17:22 | disposition home or self-care (01) ==
LOC: SDS 12:50
PROVIDERS: ATTEND Surgery
DX: K80.20 Calculus of gallbladder without cholecystitis without obstruction (principal); E66.01 Morbid (severe) obesity due to excess calories; Z68.41 Body mass index [BMI] 40.0-44.9, adult
CPT/HCPCS: 47562; 88304; J0690; J1100; J1170; J1885; J2405; J3010; Z7512; Z7610

== ENCOUNTER 2018-10-25 12:30 | Emergency (ER) | payer BC ==
[~2018-10-25] VITALS: Ht 154.9 cm; Wt 90.0 kg
[2018-10-25 12:35] VITALS: BP 125/81; PULSE 90; RESP 18; Ht 154.9 cm; Wt 90.0 kg
== END 2018-10-25 14:33 | disposition home or self-care (01) ==
LOC: FTE 12:30
DX: Z48.01 Encounter for change or removal of surgical wound dressing (principal)
CPT/HCPCS: 99281